=== PATIENT | male | born 1965 | race Caucasian/White ===

== ENCOUNTER 2022-06-26 17:23 | Emergency (ER) | payer BC, SELFPAY ==
[2022-06-26 17:32] VITALS: BP 142/92; PULSE 82; RESP 16; TEMP 36.9; O2SAT 98
--- NOTE | 2022-06-26 17:38 | ED.SKABFB ---
HPI - Skin/Abscess/Foreign Bdy General Chief complaint: Skin/Abscess/Foreign Body Stated complaint: INSECT BITE TO R FOOT Time Seen by Provider: 06/26/22 17:31 Source: patient and RN notes reviewed Mode of arrival: ambulatory Limitations: dementia History of Present Illness HPI narrative: 56-year-old male presents with concern for redness and swelling to his right foot. He reports he possibly got an insect bite approximately 1 week ago and had a small red bump. He reports since then the area has become larger, more red, more painful and slightly discolored. He reports is now painful to walk. He denies any general malaise, fever, body aches, chills, sweats, drainage from the area. MD complaint: laceration Related Data Home Medications Medication Instructions Recorded Confirmed amlodipine 5 mg tablet 5 mg PO DAILY 06/26/22 06/26/22 lisinopril 20 1 tablet PO DAILY 06/26/22 06/26/22 mg-hydrochlorothiazide 25 mg tablet metformin 500 mg tablet,extended 2,000 mg PO DAILY 06/26/22 06/26/22 release 24 hr rosuvastatin 10 mg tablet 10 mg PO DAILY 06/26/22 06/26/22 Allergies Allergy/AdvReac Type Severity Reaction Status Date / Time No Known Allergies Allergy Verified 06/26/22 17:34 Review of Systems Review of Systems: CONSTITUTIONAL: Denies malaise, chills, sweats, or fever. EYES: Denies redness, or discharge. ENT: Denies rhinorrhea, congestion, swollen lips, swollen tongue CARDIOVASCULAR: Denies chest pain, palpitations, or edema. RESPIRATORY: Denies cough or dyspnea. GASTROINTESTINAL: Denies abdominal pain, nausea, vomiting SKIN: Reports redness, swelling tenderness to the dorsal aspect of the right foot Denies purulent drainage, vesicles, bullae, numbness, pain beyond proportion MUSCULOSKELETAL: Denies joint pain or myalgia. NEUROLOGIC: Denies headache. All systems reviewed & are unremarkable except as noted in HPI and below PMFSH Comments At time of signature, agree with nursing past medical, surgical, social and family history. There is no relevant family history pertinent to the presenting complaint Exam Narrative: GENERAL: Well-appearing, well-nourished, and in no acute distress. HEAD: Normocephalic, atraumatic. EYES: PERRLA, conjunctivae clear ENT: Mucous membranes moist. NECK: Supple. No lymphadenopathy CHEST: Clear to auscultation. No respiratory distress. HEART: Regular rate and rhythm. SKIN: Warm, dry. Approximately 2 cm in diameter area of erythema, induration, tenderness, warmth with sharp margins noted to the dorsal aspect of the right foot in the digits 4 and 5, mild redness extends beyond this with mild tenderness. No fluctuation, vesicles, bullae, necrosis, ecchymosis, crepitus noted. NEURO: Alert and oriented x3. PSYCH: Normal mood and affect Course Course Emergency Course: Patient is aware of diagnosis, understands and agrees to treatment plan. Anticipatory guidance given. Patient agrees to follow-up as directed and is aware of reasons to seek care at the emergency department. Portions of this record may have been created with voice recognition software Level of Care: Express Care Visit Vital Signs Vital signs: Vital Signs Temperature 98.4 F 06/26/22 17:32 Pulse Rate 82 06/26/22 17:32 Respiratory Rate 16 06/26/22 17:32 Blood Pressure 142/92 H 06/26/22 17:32 Pulse Oximetry 98 06/26/22 17:32 Temperature 98.4 F 06/26/22 17:32 Pulse Rate 82 06/26/22 17:32 Respiratory Rate 16 06/26/22 17:32 Blood Pressure 142/92 H 06/26/22 17:32 Pulse Oximetry 98 06/26/22 17:32 Reviewed. MDM - Skin/Abscess/Foreign Bdy MDM Narrative Medical decision making narrative: Does not appear at this time to be erythema multiforme, bullous, SJS, TEN; no evidence at this time to suggest RMSF, NSTI, endocarditis or Lyme disease; patient looks well, nontoxic and is tolerating oral intake; no neurologic signs or symptoms; no headache, photophobia or neck pain; afebrile. Patie
== END 2022-06-26 17:46 | disposition home or self-care (01) ==
PROVIDERS: Emergency Provider Nurse Practitioner; PCP Family Medicine
DX: S90.861A Insect bite (nonvenomous), right foot, initial encounter (principal); L08.9 Local infection of the skin and subcutaneous tissue, unspecified; E78.00 Pure hypercholesterolemia, unspecified; I10 Essential (primary) hypertension; G47.30 Sleep apnea, unspecified; E11.9 Type 2 diabetes mellitus without complications; Z98.52 Vasectomy status
CPT/HCPCS: 99203; G0463

== ENCOUNTER 2022-09-27 10:53 | Emergency (ER) | payer BC, SELFPAY ==
--- NOTE | ~2022-09-27 | XR_ITS ---
EXAMINATION: XR chest 2V 09/27/2022 11:29 INDICATION: Cough for 3 days PROCEDURE: 2 view chest COMPARISON: No prior studies for comparison. FINDINGS: The lungs are clear. The cardiomediastinal silhouette is within normal limits. There are no pleural effusions. There is no pneumothorax suspected. There are calcified granulomas in the rig ht lower thorax. IMPRESSION: 1: NO ACUTE CARDIOPULMONARY DISEASE. Reviewed, dictated and finalized at location B. [employer]
[2022-09-27 10:57] VITALS: BP 150/92; PULSE 90; RESP 20; TEMP 37.2; O2SAT 98
[2022-09-27 11:07] VITALS: BP 150/92; PULSE 90; RESP 20; TEMP 37.2; O2SAT 98
--- NOTE | 2022-09-27 11:07 | ED.URI ---
HPI - URI/Sore Throat General Chief Complaint: Upper Respiratory Infection Stated Complaint: BODY ACHES/FEVER/COUGH Time Seen by Provider: 09/27/22 11:00 Source: patient and RN notes reviewed History of Present Illness HPI Narrative: Patient is a 56-year-old male who presents to urgent care with complaints of body aches, subjective fever and cough. Patient states that the head congestion has relieved with DayQuil and NyQuil however he is concerned about possibility of pneumonia. Patient states it started on Monday. Denies any nausea, vomiting, shortness of breath or chest pain. No other acute complaints. No acute distress noted. Patient aware of the plan of care. Some parts of this dictation were generated by voice recognition software and may contain typographical and/or grammatical inaccuracies. Related Data Home Medications Medication Instructions Recorded Confirmed amlodipine 5 mg tablet 5 mg PO DAILY 06/26/22 09/27/22 lisinopril 20 1 tablet PO DAILY 06/26/22 09/27/22 mg-hydrochlorothiazide 25 mg tablet metformin 500 mg tablet,extended 2,000 mg PO DAILY 06/26/22 09/27/22 release 24 hr rosuvastatin 10 mg tablet 10 mg PO DAILY 06/26/22 09/27/22 Allergies Allergy/AdvReac Type Severity Reaction Status Date / Time No Known Allergies Allergy Verified 09/27/22 11:02 Review of Systems Review of Systems: CONSTITUTIONAL: Reports of chills, sweats and fatigue EYES: Denies visual changes, redness, or discharge. ENT: Reports of nasal congestion, postnasal drainage CARDIOVASCULAR: Denies chest pain, palpitations, or edema. RESPIRATORY: Reports cough/chest congestion without dyspnea GASTROINTESTINAL: Denies abdominal pain, nausea, vomiting, or diarrhea. GENITOURINARY: Denies dysuria or hematuria. SKIN: Denies rash or itching. MUSCULOSKELETAL: Denies back pain, joint pain, or myalgia. NEUROLOGIC: Denies headache, numbness, or weakness. All other systems reviewed are negative, except as documented in HPI. PMFSH Comments At the time of my signature, I reviewed and agree with the nursing past medical, surgical, social, and family history. There is no relevant family history pertinent to the patient complaint. Exam Narrative: GENERAL: This is a well-nourished, well-developed patient, in no apparent distress. HEAD: normocephalic, atraumatic. EYES: PERRL. Sclera clear/white. Vision is grossly intact. EARS: External ears normal, auditory canals clear and without drainage, TMs normal without perforation. Hearing grossly intact. NOSE: External nose normal with no obvious nasal discharge, nares without redness, clear rhinorrhea. THROAT: Mucous membranes moist, posterior pharynx clear. Moderate postnasal drainage NECK: Neck supple, non-tender without lymphadenopathy, masses or thyromegaly. CARDIOVASCULAR: Regular rate and rhythm without murmurs, gallops, or rubs. RESPIRATORY: Crackles bibasilar SKIN: warm, intact with no suspicious lesions or rash, good texture and turgor. NEURO: awake, alert, and oriented to person, place and time. There were no obvious focal neurologic abnormalities. EXTREMITIES: No clubbing, cyanosis, or edema. Course Course Level of Care: Express Care Visit Vital Signs Vital signs: Vital Signs Temperature 98.9 F 09/27/22 10:57 Pulse Rate 90 09/27/22 10:57 Respiratory Rate 20 09/27/22 10:57 Blood Pressure 150/92 H 09/27/22 10:57 Pulse Oximetry 98 09/27/22 10:57 Oxygen Delivery Room Air 09/27/22 10:57 Temperature 98.9 F 09/27/22 11:07 Pulse Rate 90 09/27/22 11:07 Respiratory Rate 20 09/27/22 11:07 Blood Pressure 150/92 H 09/27/22 11:07 Pulse Oximetry 98 09/27/22 11:07 Oxygen Delivery Room Air 09/27/22 11:07 Reviewed- Patient is informed that they may have pre-hypertension or hypertension based on a blood pressure reading in the department. I recommend the patient call the primary care provider listed on their discharge instructions or a physician of the
== END 2022-09-27 11:49 | disposition home or self-care (01) ==
PROVIDERS: Emergency Provider Nurse Practitioner Family; PCP Family Medicine
DX: J40 Bronchitis, not specified as acute or chronic (principal); J06.9 Acute upper respiratory infection, unspecified; E78.00 Pure hypercholesterolemia, unspecified; I10 Essential (primary) hypertension; G47.30 Sleep apnea, unspecified; E11.9 Type 2 diabetes mellitus without complications; Z98.52 Vasectomy status
CPT/HCPCS: 71046; 99213; G0463

== ENCOUNTER 2023-11-20 15:54 | Outpatient (RCR) | payer BC, SELFPAY ==
--- NOTE | 2023-11-20 16:57 | PTOPEVAL1 ---
Assessment and note entered by Garry Sorto Evaluation Information Assessment Status Evaluation Diagnosis left knee pain Onset 11/13/23 Subjective Information Pt. reports that he has had knee pain for about 3 years. He reports that 3 years ago he ruptured a Bakers cyst which resulted in pain. He reports that he has received injections since which have helped to control pain. He reports that he had stem cell injection about 1 year that help somewhat to ease his pain. He reports that he has had xray which revealed significant arthritis in the left knee. He reports that he has difficulty with walking and standing. He reports that he is going to be fitted for a brace. He reports that his goal is to improve his walking. Reported Pain Level Pain Score 4: Self Report Assessment PT Clinical Summary Pt. is a 57 year old male who enters the clinic with left knee pain, secondary to OA in the medial compartment. He presents with impaired gait, impaired flexibility, proximal l.e. weakness and left knee stiffness on this date. Continued skilled PT is indicated in order to improve these areas to allow pt. to be able to participate in regular walking and IADL's with improved comfort. Plan of Care Interventions Electrical Stimulation,Gait Training,Hot Pack/Cold Pack,Manual Therapy,Neuro Re-education,Patient/ Caregiver Educati,Therapeutic Activities, Therapeutic Exercise PT Services Indicated Yes Treatment Frequency and 2x/week x 8 visits Duration These treatments will address the objective and functional deficits as defined above. The patient will be advanced safely and appropriately in order for the patient to progress towards his/her prior level of function. Additional exercises will be introduced and as well as a comprehensive home exercise program upon discharge, if needed, ?to ensure carryover of functional gains achieved in the clinic. This treatment plan has been reviewed and agreement upon by the patient.
--- NOTE | 2023-11-20 17:04 | OPREHPOC ---
Outpatient Therapy Plan of Care This is a Multidisciplinary Plan of Care that may contain components documented by all disciplines (PT, OT, and ST.) PT Problem 1 PT Problem #1 Knowledge Deficit PT Goal 1 Goal Independent with a HEP addressing l.e. strength and mobility. Target Visit 2 PT Problem 2 PT Problem #2 Impaired Flexibility PT Goal 1 Goal Pt. will present at 10 degrees from full knee extension with the 90/90 test. Target Visit 8 PT Problem 3 PT Problem #3 Impaired Strength PT Goal 1 Goal Pt. will demonstrate 5/5 gross l.e. strength. Target Visit 8 PT Problem 4 PT Problem #4 Impaired Gait PT Goal 1 Goal Pt. will demonstrate improved mechanics with no l. e. circumduction on left and equal stance time. Target Visit 8
--- NOTE | 2023-12-13 17:52 | PCPTNOTE ---
patient called and cancelled therapy for an unknown reason today.
--- NOTE | 2023-12-26 10:16 | PCPTNOTE ---
12/26/23: Pt cancelled today's appointment due to a work conflict. He does not plan to reschedule since it was his last visit. Pt discharge note had been started this am. -Michelle Trevizo, PT
== END 2023-12-20 20:00 | disposition home or self-care (01) ==
LOC: CHSPT 15:54
PROVIDERS: Visit Provider Orthopaedic Surgery
DX: M25.562 Pain in left knee (principal)
CPT/HCPCS: 97014; 97110; 97161; G0283

== ENCOUNTER 2024-07-27 18:49 | Emergency (ER) | payer BC, SELFPAY ==
--- NOTE | 2024-07-27 18:55 | ED.BACK ---
HPI - Back Pain/Injury General Chief Complaint: Skin/Abscess/Foreign Body Stated Complaint: Fever / Lower Butt or back Pain Time Seen by Provider: 07/27/24 18:54 Source: patient Mode of arrival: ambulatory Limitations: no limitations History of Present Illness HPI Narrative: Al is a 4-year-old male patient presenting to the clinic today with complaints of fever and pain/swelling to the left side of his anus/glut. He reports that this has been going on for approximately 3 days. States fever today was 101. He is afebrile in the clinic currently. Related Data Home Medications Medication Instructions Recorded Confirmed amlodipine 5 mg tablet 5 mg PO DAILY 06/26/22 07/27/24 lisinopril 20 1 tablet PO DAILY 06/26/22 07/27/24 mg-hydrochlorothiazide 25 mg tablet metformin 500 mg tablet,extended 2,000 mg PO DAILY 06/26/22 07/27/24 release 24 hr rosuvastatin 10 mg tablet 10 mg PO DAILY 06/26/22 07/27/24 tirzepatide 5 mg/0.5 mL 5 mg subcut WEEKLY 07/27/24 07/27/24 subcutaneous pen injector (Mounjaro) Allergies Allergy/AdvReac Type Severity Reaction Status Date / Time No Known Allergies Allergy Verified 07/27/24 19:03 Review of Systems Review of Systems: Pertinent positives per HPI. Patient denies any fever, chills, rash, headache, visual changes, dizziness, cough, runny nose, sore throat, shortness of breath, chest pain, palpitations, nausea, vomiting, diarrhea, constipation, abdominal pain, or any urinary issues. PMFSH Comments At the time of my signature, I reviewed and agree with the nursing past medical, surgical, social, and family history. There is no relevant family history pertinent to the patient complaint. Exam Narrative: General: Well-developed, obese, in no apparent distress Head: Normocephalic, atraumatic. Cardio: Regular rate and rhythm, s1 and s2 normal, no murmur appreciated. Resp: Clear to auscultation bilaterally, no rhonchi, rales, wheezing or rubs. Integumentary: [place], warm, and dry, 2 x 3 cm non fluctuant tender perirectal abscess to the left anus/glut. Localized redness, erythema, and swelling noted Course Course Emergency Course: Portions of this record may have been created with voice recognition software. Level of Care: Express Care Visit Vital Signs Vital signs: Vital Signs Temperature 36.9 C 07/27/24 19:00 Pulse Rate 117 H 07/27/24 19:00 Respiratory Rate 16 07/27/24 19:00 Blood Pressure 152/78 H 07/27/24 19:00 Pulse Oximetry 95 07/27/24 19:00 Temperature 36.9 C 07/27/24 19:00 Pulse Rate 117 H 07/27/24 19:00 Respiratory Rate 16 07/27/24 19:00 Blood Pressure 152/78 H 07/27/24 19:00 Pulse Oximetry 95 07/27/24 19:00 Vital signs reviewed MDM - Back Pain/Injury MDM Narrative Medical decision making narrative: At the time of visit patient is resting comfortably on the exam table. Patient appears to be nontoxic. Plan: I suspect patient has a left-sided perirectal abscess. Area was measuring 3 cm x 2 cm. Non fluctuant so no incision and drainage was performed in the clinic today. Will place the patient on Augmentin. Patient is diabetic and I explained to him that if his symptoms got worse he needed to go to the emergency room immediately. No sign of for fourniers gangrene in the clinic today. Supportive measures were discussed with the patient and they voiced understanding discharge instructions and agrees to treatment plan. Return precautions reviewed Differential Diagnosis Differential diagnosis: Likely other (Perirectal abscess, gluteal abscess, sepsis, cellulitis) Discharge Plan Discharge Clinical Impression: Abscess, perirectal Patient Disposition: Home, Self-Care Condition: Stable Instructions: Antibiotic Form, Rectal Abscess (ED) Additional Instructions: Abscess is non fluctuant at this time so no incision and drainage was performed. Take oral antibiotics as prescribed May take Tylenol/Motri
[2024-07-27 19:00] VITALS: BP 152/78; PULSE 117; RESP 16; TEMP 36.9; O2SAT 95
== END 2024-07-27 19:22 | disposition home or self-care (01) ==
PROVIDERS: Emergency Provider Nurse Practitioner Family; PCP Family Medicine
DX: K61.1 Rectal abscess (principal); Z79.84 Long term (current) use of oral hypoglycemic drugs; Z79.899 Other long term (current) drug therapy
CPT/HCPCS: 99213; G0463

== ENCOUNTER 2025-02-27 11:19 | Emergency (ER) | payer BC, SELFPAY ==
[2025-02-27 11:30] VITALS: BP 122/85; PULSE 96; RESP 16; TEMP 36.4; O2SAT 97
--- NOTE | 2025-02-27 12:12 | ED.URI ---
HPI - URI/Sore Throat General Chief Complaint: Upper Respiratory Infection Stated Complaint: Strep Symptoms Time Seen by Provider: 02/27/25 12:13 Source: patient, RN notes reviewed and old records reviewed Mode of arrival: ambulatory Limitations: no limitations History of Present Illness HPI Narrative: 59-year-old male presents to the [facility] with sinus pain, pressure, sore throat, drainage that started on Monday, 4 days ago. States that he has taken [id number] products with no relief. Related Data Home Medications Medication Instructions Recorded Confirmed Last Taken Type amlodipine 5 mg tablet 5 mg PO DAILY 06/26/22 02/27/25 Unknown History lisinopril 20 1 tablet PO DAILY 06/26/22 02/27/25 Unknown History mg-hydrochlorothiazide 25 mg tablet metformin 500 mg tablet,extended 2,000 mg PO DAILY 06/26/22 02/27/25 Unknown History release 24 hr rosuvastatin 10 mg tablet 10 mg PO DAILY 06/26/22 02/27/25 Unknown History tirzepatide 5 mg/0.5 mL 5 mg subcut WEEKLY 07/27/24 07/27/24 Unknown History subcutaneous pen injector (Mounjaro) testosterone cypionate 200 mg/mL mg 02/27/25 Unknown History intramuscular oil tirzepatide 7.5 mg/0.5 mL mg subcut 02/27/25 Unknown History subcutaneous pen injector (Mounjaro) Allergies Allergy/AdvReac Type Severity Reaction Status Date / Time No Known Allergies Allergy Verified 02/27/25 11:35 Review of Systems Review of Systems: All systems reviewed & are unremarkable except as noted in HPI and below Constitutional: Constitutional: Reports no additional constitutional complaints ENT: Reports as per HPI Cardiovascular: Cardiovascular: Reports no additional cardiovascular complaints, Denies chest pain and Denies dyspnea Respiratory: Respiratory: Reports no additional respiratory complaints, Denies chest congestion, Denies cough and Denies dyspnea Musculoskeletal: Musculoskeletal: Reports no additional musculoskeletal complaints Integumentary/Breasts: Skin/Breast: Reports system reviewed and no additional complaints, except as docu PMFSH Comments At the time of my signature, I reviewed and agree with the nursing past medical, surgical, social, and family history. There is no relevant family history pertinent to the patient complaint. Exam Const: General: cooperative, healthy appearing, comfortable, no acute distress, well developed, alert and well nourished Nutritional Appearance: well nourished and obese Orientation/consciousness: patient oriented x3 Limitations: no limitations HENMT: Head: normal to inspection Ears: hearing grossly normal bilaterally, external ears normal, TM's normal bilaterally, EAC's normal, mastoids normal and no periauricular adenopathy Face/Nose/Sinus: Abnormal mucous membranes and turbinates present boggy and erythematous and sinus tenderness Face and sinus: face symmetric, no ecchymosis, no erythema and sinus tenderness frontal and maxillary Mouth: Yes Normal oral and palatal mucosa present, Yes lip normal, Yes tongue normal and Yes moist mucous membranes Throat: posterior oropharynx normal, uvula midline, postnasal drainage and no uvular edema Eyes: General: appearance normal, both eyes and all related structures Alignment and Position: alignment normal Periorbital: periorbital findings normal Eyelids: eyelids normal Neck: Neck: normal visual inspection, full ROM, no lymphadenopathy and no meningeal signs Chest: Chest palpation & inspection: normal inspection of the chest Resp: Effort & Inspection: normal respiratory effort and able to speak in complete sentences Auscultation: clear to auscultation bilaterally, no crackles, no rales, no rhonchi and no wheezes Cardio: Rate: regular rate Skin: General skin exam: normal color and no rashes or lesions noted Neuro: General: patient oriented x3, gait normal, moves all extremities and no meningeal signs Cognition (Neuro): normal cognition Speech: normal speech Gait exam (Neuro): Normal gait present Extrem: General: normal to inspection, full ROM, capillary refill normal and normal gait Psych: Appearance: grossly normal and well kempt Mental Status: mental status grossly normal Speech and movement: Normal speech and movement present and Clear speech present Affect: normal affect Attitude: cooperative Course Course Level of Care: Express Care Visit Vital Signs Vital signs: Vital Signs Temperature 97.6 F 02/27/25 11:30 Pulse Rate 96 02/27/25 11:30 Respiratory Rate 16 02/27/25 11:30 Blood Pressure 122/85 02/27/25 11:30 Pulse Oximetry 97 02/27/25 11:30 Temperature 97.6 F 02/27/25 11:30 Pulse Rate 96 02/27/25 11:30 Respiratory Rate 16 02/27/25 11:30 Blood Pressure 122/85 02/27/25 11:30 Pulse Oximetry 97 05/15/25 11:30 Oxygen Delivery Room Air 02/27/25 11:38 Reviewed MDM - URI/Sore Throat MDM Narrative Medical decision making narrative: Patient sitting in exam room. Patient is nontoxic, vitals are stable. Patient presents with 4 day history of sinus congestion, pain, pressure. Will treat with antibiotic patient appropriate for outpatient treatment with follow-up Discharge instructions reviewed with patient, as well as provided in writing per nursing staff. The instructions also include specific and strict return/GO TO THE ER as well as f/u information. All questions have been answered, and the patient deny any further questions with discharge and discharge plan. Some parts of this dictation were generated by voice recognition software and may contain typographical and/or grammatical inaccuracies. Differential Diagnosis Differential diagnosis: Likely upper respiratory infection, otitis media, sinusitis, viral infection, bronchitis, influenza and pharyngitis Lab Data Labs: Lab Results 02/27/25 Range/Units 12:18 POC Grp A Strep Screen Negative (Negative) Reviewed Critical Care Time Critical Care Time Critical Care Time: No Discharge Plan Discharge Clinical Impression: Post-nasal drainage Sinusitis Qualifiers: Sinusitis location: pansinusitis Chronicity: acute Recurrence: not specified as recurrent Qualified Code(s): J01.40 - Acute pansinusitis, unspecified Patient Disposition: Home Condition: Stable Instructions: Antibiotic Form, Sinusitis (ED), Postnasal Drip (DC) Additional Instructions: Your rapid strep swab was negative today at [facility]. A throat culture will be sent to the laboratory for further testing. If the test is positive, you will receive a phone call within 48 hours and an appropriate antibiotic will be initiated at that time. It is very important to treat your symptoms. Drink plenty of water, Gatorade, Pedialyte, ice pops or Jell-O. -Alternate Tylenol and Motrin per package directions for fever or pain. You can alternate every 4 hours -Antihistamine medication such as Zyrtec/Claritin/Elsa during the day can help improve symptoms. -doing daily nasal irrigations can help relieve pressure your sinuses. Things like a Neti pot -Use Flonase twice a day for 5 days then daily to help reduce the inflammation and dry up your sinuses. -You can also use Mucinex. Be sure to drink plenty of water with this medication at least 8 ounces with every dose and it is important to drink 8 to 10 glasses of water per day. Water is a natural decongestant -Eat and drink things that are easy to swallow, like tea or soup, or popsicles. -Oral rinses such as: Salt water gargles and/or may use topical anesthetic (eg. Chloraseptic spray) or lozenges to relieve dryness or throat pain). -Frequent hand washing or hand document management analyst is one of the best ways to prevent spread of infection. -Using a vaporizer or humidifier at night will also help thin secretions and help with coughing up phlegm. -Follow up with primary care provider in 7-10 days if condition is not improving - For new or worsening symptoms go directly to the nearest ER Patient Language: Indian Prescriptions: New amoxicillin-pot clavulanate 875-125 mg tablet 1 tablet PO Q12H Qty: 14 0RF No Action amlodipine 5 mg tablet 5 mg PO DAILY lisinopril-hydrochlorothiazide 20-25 mg tablet 1 tablet PO DAILY metformin 500 mg tablet extended release 24 hr 2,000 mg PO DAILY Rx Instructions: take 4 tablets daily with evening meal. rosuvastatin 10 mg tablet 10 mg PO DAILY Mounjaro 5 mg/0.5 mL pen injector 5 mg SUBCUT WEEKLY amoxicillin-pot clavulanate 875-125 mg tablet 1 tablet PO Q12H 10 Days Qty: 20 0RF testosterone cypionate 200 mg/mL oil Mounjaro 7.5 mg/0.5 mL pen injector SUBCUT Follow-up/Referrals: PHYSICIAN,DAIRY STORE MANAGER [Primary Care Provider] - Stand Alone Forms: Work/School Release IP Time of Disposition: 12:19
[2025-02-27 12:20] LABS: EDSTREPNEGPOS1 Negative (Negative)
== END 2025-02-27 12:24 | disposition home or self-care (01) ==
PROVIDERS: Emergency Provider Nurse Practitioner
DX: J01.40 Acute pansinusitis, unspecified (principal); Z79.899 Other long term (current) drug therapy; Z79.84 Long term (current) use of oral hypoglycemic drugs
CPT/HCPCS: 87081; 87880; 99213; G0463